=== PATIENT | female | born 1965 | race Caucasian/White ===

== ENCOUNTER 2018-04-05 10:38 | Emergency (ER) | payer OTHER ==
[2018-04-05 13:45] LABS: Absolute Lymphocytes (CBC) 4.2 K/uL (0.7-4.9); Absolute Monocytes 0.7 K/uL (0.1-1.3); Absolute Neutrophil 4.9 K/uL (1.8-8.0); Basophils % 0.9 % (0-1.3); Eosinophils % 1.7 % (0-4.4); Hematocrit 42.9 % (36.0-45.0); MPV 9.3 fL (7.6-11.3); Monocytes % 6.6 % (3.3-12.3); RBC Red Blood Cell Count 4.41 M/uL (3.86-4.86)
[2018-04-05 14:04] LABS: BUN Blood Urea Nitrogen 15 mg/dL (7-18); Bicarbonate 27 mmol/L (21-32); Glucose Level 93 mg/dL (74-106); Potassium 4.3 mmol/L (3.5-5.1); Sodium Level 139 mmol/L (136-145); Troponin (Emerg Dept Use Only) < 0.02 ng/mL (0.0-0.045)
--- NOTE | 2018-04-05 14:43 | RAD REPORT ---
EXAM DESCRIPTION: RAD - Chest Pa And Lat (2 Views) - 04/05/2018 2:35 pm CLINICAL HISTORY: DYSPNEA Chest pain. COMPARISON: Chest Single View dated 02/16/2016; CHEST PA AND LAT 2 VIEW dated 04/03/2009; CHEST SINGLE VIEW dated 06/13/2008; ABDOMEN ACUTE SERIES dated 06/06/2006 FINDINGS: The lungs are clear. The heart is normal in size. No displaced fractures. IMPRESSION: No acute or concerning finding suspected.
--- NOTE | 2018-04-05 15:19 | EDPHYS ---
Physician Documentation [facility] Name: Janey Plaza Age: 52 yrs Sex: Female : 1965 Arrival Date: 04/05/2018 Time: 10:40 Bed 25 Private MD: Lee Gambino ED Physician Robin Call HPI: 04/05 13:18 This 52 yrs old Female presents to ER via Wheelchair with complaints of rn Shortness Of Breath, Dizziness. 13:18 The patient has shortness of breath with light activity. Onset: The symptoms/episode rn began/occurred 4 day(s) ago. Duration: The symptoms are intermittent. The patient's shortness of breath is aggravated by exertion, light activity. Severity of symptoms: At their worst the symptoms were mild in the emergency department the symptoms have improved. The patient has not experienced similar symptoms in the past. The patient has not recently seen a physician. REports dizziness/lightheaded and dyspnea on exertion for 4 days, no chest pain, has been taking iron pills because assumed she was iron deficient. . 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 - Social history:: Smoking status: Patient uses tobacco products, smokes one pack cigarettes per day. - Ebola Screening: : Patient negative for fever greater than or equal to 101.5 degrees Fahrenheit, and additional compatible Ebola Virus Disease symptoms Patient denies exposure to infectious person Patient denies travel to an Ebola-affected area in the 21 days before illness onset No symptoms or risks identified at this time. - Family history:: not pertinent. - Hospitalizations: : No recent hospitalization is reported. ROS: 13:18 Constitutional: Negative for fever, chills, and weight loss, Eyes: Negative for injury, rn pain, redness, and discharge, ENT: Negative for injury, pain, and discharge, Neck: Negative for injury, pain, and swelling, Cardiovascular: Negative for chest pain, palpitations, and edema, Respiratory: + sob Abdomen/GI: Negative for abdominal pain, nausea, vomiting, diarrhea, and constipation, MS/Extremity: Negative for injury and deformity, Skin: Negative for injury, rash, and discoloration, Neuro: Negative for headache, numbness, tingling, and seizure. Exam: 13:18 Constitutional: This is a well developed, well nourished patient who is awake, alert, rn and in no acute distress. Head/Face: Normocephalic, atraumatic. Eyes: Pupils equal round and reactive to light, extra-ocular motions intact. Lids and lashes normal. Conjunctiva and sclera are non-icteric and not injected. Cornea within normal limits. Periorbital areas with no swelling, redness, or edema. ENT: MMM, no stridor Cardiovascular: Regular rate and rhythm with a normal S1 and S2. No JVD. No pulse deficits. Respiratory: Lungs have equal breath sounds bilaterally, clear to auscultation and percussion. No rales, rhonchi or wheezes noted. No increased work of breathing, no retractions or nasal flaring. Abdomen/GI: Soft, non-tender, with normal bowel sounds. No distension or tympany. No guarding or rebound. No evidence of tenderness throughout. Skin: Warm, dry with normal turgor. Normal color with no rashes, no lesions, and no evidence of cellulitis. MS/ Extremity: Pulses equal, no cyanosis. Neurovascular intact. Full, normal range of motion. Equal circumference. Neuro: Awake and alert, GCS 15, oriented to person, place, time, and situation. Cranial nerves II-XII grossly intact. Motor strength 5/5 in all extremities. Sensory grossly intact. Cerebellar exam normal. Vital Signs: 10:44 Weight 92.99 kg; Height 5 ft. 7 in. (170.18 cm); Pain 3/10; sg 10:45 Pulse 86; Resp 18; Temp 97.1; Pulse Ox 98% on R/A; sg 10:45 BP 122 / 71; sg 12:57 BP 101 / 70; Pulse 69; Resp 18; Pulse Ox 100% on R/A; tl3 13:37 BP 101 / 58; Pulse 63; Resp 18; Pulse Ox 100% on R/A; tl3 15:06 BP 120 / 83; Pulse 67; Resp 18; Pulse Ox 94% on R/A; tl3 10:44 Body Mass Index 32.11 (92.99 kg, 170.18 cm) sg MDM: 12:37 Patient medically screened. rn 15:16 Differential diagnosis: Anemia Anxiety Reaction Myocardial Infarction pneumonia, rn Pneumothorax Psychogenic pulmonary edema. Data reviewed: vital signs, nurses notes, lab test result(s), EKG, radiologic studies, plain films, and as a result, I will discharge patient. Counseling: I had a detailed discussion with the patient and/or guardian regarding: the historical points, exam findings, and any diagnostic results supporting the discharge/admit diagnosis, lab results, radiology results, the need for outpatient follow up, to return to the emergency department if symptoms worsen or persist or if there are any questions or concerns that arise at home. Response to treatment: the patient's symptoms have markedly improved after treatment, and as a result, I will discharge patient. Special discussion: Based on the patient's history, exam, and Dx evaluation, there is no indication for emergent intervention or inpatient Tx. It is understood by the patient/guardian that if the Sx's persist or worsen they need to return immediately for re-evaluation. I discussed with the patient/guardian in detail that at this point there is no indication for admission to the hospital. It is understood, however, that if the symptoms persist or worsen the patient needs to return immediately for re-evaluation. Based on the history and exam findings, there is no indication for further emergent testing or inpatient evaluation. 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 ED course: Spoke at length with patient and , offered observation in hospital with cardiac w/u, patient chooses to check into her insurance given is new policy, and prefers to f/u with pcp/cardiology and get ECHO/stress as outpt. Strongly recommend given known hx of MVP and possibly getting worse with time. Return precautions given and understood. . 04/05 12:54 Order name: CBC with Diff rn 04/05 12:54 Order name: Basic Metabolic Panel; Complete Time: 14:56 rn 04/05 12:54 Order name: XRAY Chest Pa And Lat (2 Views) rn 04/05 12:54 Order name: Troponin (emerg Dept Use Only); Complete Time: 14:56 rn 04/05 13:20 Order name: PROBNP; Complete Time: 14:56 rn 04/05 13:47 Order name: CBC Smear Scan EDMS 04/05 12:54 Order name: IV Start; Complete Time: 13:36 rn 04/05 12:54 Order name: EKG; Complete Time: 12:54 rn 04/05 12:54 Order name: EKG - Nurse/Tech; Complete Time: 13:36 rn 04/05 15:35 Order name: RAD EDMS Administered Medications: No medications were administered Disposition: 04/05/18 15:18 Discharged to Home. Impression: Dyspnea, unspecified. - Condition is Stable. - Discharge Instructions: Mitral Valve Prolapse, Mitral Valve Regurgitation, Shortness of Breath. - Medication Reconciliation Form, Thank You Letter, Antibiotic Education, Prescription Opioid Use form. - Follow up: Thomas Lawson MD; When: 5 - 6 days; Reason: Further diagnostic work-up, Recheck today's complaints, Continuance of care, Re-evaluation by your physician. - Problem is new. - Symptoms have improved. Signatures: Dispatcher [employer] EDNJ Terrell Queen RN RN sg Nieto, Roman, MD MD rn Lowrey, Tammy, RN RN tl3 Corrections: (The following items were deleted from the chart) 13:20 13:18 Constitutional: This is a well developed, well nourished patient who is awake, rn alert, and in no acute distress. Head/Face: Normocephalic, atraumatic. Eyes: Pupils equal round and reactive to light, extra-ocular motions intact. Lids and lashes normal. Conjunctiva and sclera are non-icteric and not injected. Cornea within normal limits. Periorbital areas with no swelling, redness, or edema. ENT: MMM, no stridor Cardiovascular: Regular rate and rhythm with a normal S1 and S2. No JVD. No pulse deficits. Respiratory: Lungs have equal breath sounds bilaterally, clear to auscultation and percussion. No rales, rhonchi or wheezes noted. No increased work of breathing, no retractions or nasal flaring. Abdomen/GI: Soft, non-tender, with normal bowel sounds. No distension or tympany. No guarding or rebound. No evidence of tenderness throughout. rn 15:39 15:18 04/05/2018 15:18 Discharged to Home. Impression: Dyspnea, unspecified. Condition tl3 is Stable. Forms are Medication Reconciliation Form, Thank You Letter, Antibiotic Education, Prescription Opioid Use. Follow up: Thomas Lawson; When: 5 - 6 days; Reason: Further diagnostic work-up, Recheck today's complaints, Continuance of care, Re-evaluation by your physician. Problem is new. Symptoms have improved. rn
--- NOTE | 2018-04-05 15:19 | ER ---
Nurse's Notes [facility] Name: Janey Plaza Age: 52 yrs Sex: Female : 1965 Arrival Date: 04/05/2018 Time: 10:40 Bed 25 Private MD: Lee Gambino Diagnosis: Dyspnea, unspecified Presentation: 04/05 10:41 Presenting complaint: Patient states: Dizziness and shortness of breath that started on sg , reports having a difficult time catching her breath since as well, has had some dizziness that is aggravated by activity, reports sweating with the smallest amount of activity. Transition of care: patient was not received from another setting of care. Onset of symptoms was April 05, 2018. Risk Assessment: Do you want to hurt yourself or someone else? Patient reports no desire to harm self or others. Initial Sepsis Screen: Does the patient meet any 2 criteria? HR > 90 bpm. Does the patient have a suspected source of infection? No. Patient's initial sepsis screen is negative. Care prior to arrival: None. 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 - Social history:: Smoking status: Patient uses tobacco products, smokes one pack cigarettes per day. - Ebola Screening: : Patient negative for fever greater than or equal to 101.5 degrees Fahrenheit, and additional compatible Ebola Virus Disease symptoms Patient denies exposure to infectious person Patient denies travel to an Ebola-affected area in the 21 days before illness onset No symptoms or risks identified at this time. - Family history:: not pertinent. - Hospitalizations: : No recent hospitalization is reported. Screenin:57 Abuse screen: Denies threats or abuse. Nutritional screening: No deficits noted. tl3 Tuberculosis screening: No symptoms or risk factors identified. Fall Risk None identified. Assessment: 12:50 General: Appears uncomfortable, well groomed, well developed, well nourished, Behavior tl3 is calm, cooperative, appropriate for age. Pain:. Neuro: Level of Consciousness is awake, alert, obeys commands, Oriented to person, place, time, situation, Appropriate for age. Cardiovascular: Heart tones S1 S2 present Patient's skin is warm and dry. Respiratory: Airway is patent Respiratory effort is even, unlabored, Respiratory pattern is regular, symmetrical, Breath sounds are clear bilaterally. GI: No signs and/or symptoms were reported involving the gastrointestinal system. 12:50 Respiratory: Reports shortness of breath pain with movement. tl3 13:37 Reassessment: No changes from previously documented assessment. Patient and/or family tl3 updated on plan of care and expected duration. Pain level reassessed. Patient is alert, oriented x 3, equal unlabored respirations, skin warm/dry/pink. 14:09 Reassessment: pt to xray. tl3 15:06 Reassessment: Patient appears in no apparent distress at this time. No changes from tl3 previously documented assessment. Patient and/or family updated on plan of care and expected duration. Pain level reassessed. Patient is alert, oriented x 3, equal unlabored respirations, skin warm/dry/pink. Dr Call at bedside discussing POC. Vital Signs: 10:44 Weight 92.99 kg; Height 5 ft. 7 in. (170.18 cm); Pain 3/10; sg 10:45 Pulse 86; Resp 18; Temp 97.1; Pulse Ox 98% on R/A; sg 10:45 BP 122 / 71; sg 12:57 BP 101 / 70; Pulse 69; Resp 18; Pulse Ox 100% on R/A; tl3 13:37 BP 101 / 58; Pulse 63; Resp 18; Pulse Ox 100% on R/A; tl3 15:06 BP 120 / 83; Pulse 67; Resp 18; Pulse Ox 94% on R/A; tl3 10:44 Body Mass Index 32.11 (92.99 kg, 170.18 cm) sg ED Course: 10:40 Patient arrived in ED. sb2 10:40 Lee Gambino MD is Private Physician. sb2 10:43 Triage completed. sg 10:43 Arm band placed on. sg 12:37 Robin Call MD is Attending Physician. rn 12:49 Groves, Leisa, RN is Primary Nurse. tl3 12:57 Patient has correct armband on for positive identification. Placed in gown. Bed in low tl3 position. Call light in reach. Side rails up X 1. Adult w/ patient. Pulse ox on. NIBP on. Warm blanket given. 13:10 EKG done, by polytechnic registrar. reviewed by Robin Call MD. at1 13:37 No provider procedures requiring assistance completed. Initial lab(s) drawn, by ny, tl3 sent to lab. Inserted saline lock: 22 gauge in left antecubital area, using aseptic technique. Blood collected. 14:07 X-ray completed. Patient tolerated procedure well. Patient taken to an exam room, 1 Patient moved to radiology via wheelchair. Patient moved back from radiology. 15:18 Thomas Lawson MD is Referral Physician. rn 15:18 XRAY Chest Pa And Lat (2 Views) Sent. tl3 15:38 IV discontinued, intact, bleeding controlled, No redness/swelling at site. Pressure tl3 dressing applied. Administered Medications: No medications were administered Outcome: 15:18 Discharge ordered by . rn 15:38 Discharged to home ambulatory. tl3 15:38 Condition: stable 15:38 Discharge instructions given to patient, family, Instructed on discharge instructions, follow up and referral plans. Demonstrated understanding of instructions, follow-up care. 15:39 Patient left the ED. tl3 Signatures: Terrell Queen, RN RN Binta Guerrero 1 Robin Call MD MD rn Gonzales, Amanda, test deskman EKG Tat1 Yi Guerrero sb2 Leisa Zhong, RN RN tl3
--- NOTE | 2018-04-05 17:01 | EKG ---
Test Date: 2018-03-05 Test Time: 13:05:28 Physical Therapy Assistant: AJAY MEASUREMENT RESULTS: Intervals: Rate: 66 MD: 142 QRSD: 86 QT: 432 QTc: 452 [place]: P: 34 MD: 142 QRS: 15 T: 25 INTERPRETIVE STATEMENTS: Normal sinus rhythm Normal ECG No previous ECG available for comparison Electronically Signed On 04-05-18 17:00:41 HOME HEALTH NURSE LICENSED PRACTICAL by Thomas Lawson
[2018-04-05 17:32] LABS: Blood Morphology Comment NOT SEEN (NOT SEEN); Platelet Estimate ADEQ; Urine White Blood Cell Casts OK
== END 2018-04-05 15:39 | disposition home or self-care (01) ==
LOC: ER 10:38
DX: R06.00 Dyspnea, unspecified (principal); F17.210 Nicotine dependence, cigarettes, uncomplicated; I34.1 Nonrheumatic mitral (valve) prolapse
CPT/HCPCS: 36415; 71046; 80048; 83880; 84484; 85025; 93005; 99284